=== PATIENT | female | born 1995 | race African-American/Black ===

== ENCOUNTER 2016-07-03 11:18 | Inpatient (IN) | payer MEDICAID ==
[2016-07-03] MEDS ORDERED: PENICILLIN G POTASSIUM 5,000,000 UNIT in DEXTROSE 5%-WATER 100 ML IV ONE (11:46)
[2016-07-03] MEDS ORDERED: RINGERS SOLUTION,LACTATED 1,000 ML IV PRN (11:46)
[2016-07-03] MEDS ORDERED: RINGERS SOLUTION,LACTATED 1,000 ML IV ONE (11:46)
[2016-07-03 12:00] LABS: ABSOLUTE BASOPHILS # (AUTO) 0.1 10^3/uL (0.0-0.2); ABSOLUTE LYMPHOCYTES (AUTO) 1.1 10^3/uL (0.5-4.7); ABSOLUTE MONOCYTES (AUTO) 0.5 10^3/uL (0.1-1.4); ABSOLUTE NEUT (AUTO) 5.9 10^3/uL (1.7-8.2); BASOPHILS % (AUTO) 0.7 % (0-2); EOSINOPHILS % (AUTO) 0.3 % (0-6); HEMATOCRIT 33.5 % (36.0-47.0); HEMOGLOBIN 10.7 g/dL (12.0-15.5); HGB HCT DIFFERENCE -1.4; LYMPHOCYTES % (AUTO) 14.3 % (13-45); MEAN CORPUSCULAR HEMOGLOBIN 27.3 pg (27.0-33.4); MEAN CORPUSCULAR VOLUME 85 fl (80-97); MONOCYTES % (AUTO) 6.3 % (3-13); RED BLOOD COUNT 3.92 10^6/uL (3.72-5.28); RED CELL DISTRIBUTION WIDTH 12.8 % (11.5-14.0); SEGMENTED NEUTROPHILS % (AUTO) 78.4 % (42-78); WHITE BLOOD COUNT 7.6 10^3/uL (4.0-10.5)
--- NOTE | 2016-07-03 12:00 | L&D Flow Sheet ---
LD Flowsheet Datetime Report Generated by CPN: 07/03/2016 12:00 Datetime: 07/03/2016 11:56 Vaginal Exam Dilatation (cm): 9.0 (Sidra Vitrano, RN) Effacement (%): 100 (Sidra Vitrano, RN) Station: 1 (Sidra Vitrano, RN) Exam by: R. Vitrano, RN (Sidra Vitrano, RN) Datetime: 07/03/2016 11:52 Pain Coping: Breathing Through Contractions (Sidra Vitrano, RN) Pain Assessment Comments: Counter pressure low back (Sidra Vitrano, RN) Comfort Measures: Breathing/Relaxation; Coaching (Sidra Vitrano, RN) LaborFlag: Antepartum (QS system process) Datetime: 07/03/2016 11:50 Communication Communication Comments: C. Finley CNM notified of SVE, requested to bedside (Deb Javad, RN) Datetime: 07/03/2016 11:48 Vaginal Exam Dilatation (cm): 8.5 (Sidra Vitrano, RN) Effacement (%): 100 (Sidra Vitrano, RN) Station: 0 (Sidra Vitrano, RN) Exam by: R. Vitrano, RN (Sidra Vitrano, RN) Datetime: 07/03/2016 11:47 Patient Care Comments: Labs drawn (Sidra Vitrano, RN) Datetime: 07/03/2016 11:46 Patient Care Comments: Warm pack given (Sidra Virginiaano, RN) Datetime: 07/03/2016 11:44 Patient Care IV/Blood Work: Labs Drawn (Sidra Walsh, RN) Patient Care Comments: admission labs drawn per standing orders (Sidra Walsh, RN) Datetime: 07/03/2016 11:39 Medications Medication Comments: PCN 5 milion units IVPB (Sidra Vitrano, RN) Datetime: 07/03/2016 11:38 Patient Care IV/Blood Work: IV Started; IV Bolus Started; IV Infusing per Order (Sidra Vitrano, RN) Patient Care Comments: 18 G L forearm LR bolusing (Sidra Vitrano, RN) Datetime: 07/03/2016 11:35 Assessment A Monitor Interventions for FHR: Ultrasound Adjusted (Sidra Vitrano, RN) Datetime: 07/03/2016 11:34 Communication Communication Comments: C. Finley, CNM called for SVE, orders for STAT bedside US, admit for labor (Sidra Vitrano, RN) Datetime: 07/03/2016 11:33 Vaginal Exam Dilatation (cm): 6.0 (Sidra Vitrano, RN) Effacement (%): 90 (Sidra Vitrano, RN) Station: 0 (Sidra Vitrano, RN) Exam by: RRosa Vitrano, RN (Sidra Vitrano, RN) Datetime: 07/03/2016 11:32 Communication Communication Comments: C. Finley, CNM called, notified of EGA per pt dates, no PNC, complaints contractions, nursing assessment. Orders for SVE. (Sidra Vitrano, RN) Datetime: 07/03/2016 11:30 Uterine Activity Frequency (min): Unsure (Sidra Vitrano, RN) Pain Pain Scale: 5 (Sidra Vitrano, RN) Pain Presence: Intermittent (Sidra Vitrano, RN) Pain Type: Contraction (Sidra Vitrano, RN) Pain Location: Abdomen; Back (Sidra Vitrano, RN) Pain Relief Measures: Comfort Measures (Sidra Vitrano, RN) Pain Coping: Breathing Through Contractions (Sidra Vitrano, RN) Membrane Status: Pt unsure (Sidra Vitrano, RN) Vaginal Bleeding: None (Sidra Vitrano, RN) Maternal Assessment Level of Consciousness: Fully Conscious (Sidra Vitrano, RN) DTR's/Clonus: DTRs 2+; No Clonus (Sidra Vitrano, RN) Headache: Denies (Sidra Walsh RN) Breath Sounds, Left: Clear and Equal (Sidra Walsh RN) Breath Sounds, Right: Clear and Equal (Sidra Walsh, RN) Nausea/Vomiting: Denies (Sidra Walsh, RN) RUQ Epigastric Pain: Denies (Sidra Walsh RN) LaborFlag: Antepartum (QS system process) Datetime: 07/03/2016 11:29 Teaching Instructional Method: Verbal; Patient Instructed; Family/Support Person Instructed; Verbalized Understanding (Sidra Walsh RN) Plan of Care: Plan of Care Discussed (Sidra Walsh RN) Unit Routine: [place] to Room; Call Jones; Bed; Unit Personnel; Monitoring; Safety/Fall Risk Prevention; Bathroom Privileges (Sidra Walsh RN) Datetime: 07/03/2016 11:28 Patient Care Comments: Unable to collect urine d/t pt declines d/t pain (Sidra Walsh RN)
[2016-07-03] MEDS ORDERED: PROMETHAZINE HCL 25 MG SUPP.RECT PR PRN (12:58)
[2016-07-03] MEDS ORDERED: BENZOCAINE/MENTHOL AEROSOL SPRAY 56 ML TOP PRN (12:58)
[2016-07-03] MEDS ORDERED: PSEUDOEPHEDRINE HCL 30 MG TABLET PO PRN (12:58)
[2016-07-03] MEDS ORDERED: ACETAMINOPHEN WITH CODEINE #3 TABLET PO PRN (12:58)
[2016-07-03] MEDS ORDERED: DIPH/PERTUSS(ACELL)/TETANUS VAC/PF 0.5 ML SYR (>=10YO) IM PRN (12:58)
[2016-07-03] MEDS ORDERED: ACETAMINOPHEN 650 MG SUPP.RECT PR PRN (12:58)
[2016-07-03] MEDS ORDERED: DIPHENHYDRAMINE HCL 25 MG CAPSULE PO PRN (12:58)
[2016-07-03] MEDS ORDERED: PROMETHAZINE HCL 25 MG TABLET PO PRN (12:58)
[2016-07-03] MEDS ORDERED: DIBUCAINE 1% OINTMENT 28 GM TP PRN (12:58)
[2016-07-03] MEDS ORDERED: NA PHOS,M-B/NA PHOS,DI-BA (ADULT) 133 ML ENEMA PR PRN (12:58)
[2016-07-03] MEDS ORDERED: OXYTOCIN/NORMAL SALINE 1,000 ML IV PRN (12:58)
[2016-07-03] MEDS ORDERED: PROMETHAZINE HCL INJ 25 MG/1 ML VIAL IV PRN (12:58)
[2016-07-03] MEDS ORDERED: MEASLES,MUMPS&RUBELLA VACC/PF 0.5 ML VIAL SUBCUT PRN (12:58)
[2016-07-03] MEDS ORDERED: ZOLPIDEM TARTRATE 5 MG TABLET PO PRN (12:58)
[2016-07-03] MEDS ORDERED: GLYCERIN/WITCH HAZEL LEAF 1 EACH MED..PAD TP PRN (12:58)
[2016-07-03] MEDS ORDERED: MAGNESIUM HYDROXIDE SUSP 30 ML UDCUP PO PRN (12:58)
[2016-07-03] MEDS ORDERED: OXYTOCIN/NORMAL SALINE 20 UNIT/1,000 ML RTUINJ ONE (12:59)
[2016-07-03 13:14] LABS: APPEARANCE,URINE SLIGHTLY-CLOUDY; BILIRUBIN,URINE NEGATIVE (NEGATIVE); GLUCOSE, URINE NEGATIVE (NEGATIVE); KETONES,URINE TRACE mg/dL (NEGATIVE); LEUKOCYTE ESTERASE,URINE TRACE (NEGATIVE); NITRITE,URINE NEGATIVE (NEGATIVE); PROTEIN,URINE 30 mg/dL (NEGATIVE); URINE SPECIFIC GRAVITY 1.032
[2016-07-03] MEDS ORDERED: IBUPROFEN 800 MG TABLET ONE (13:35)
--- NOTE | 2016-07-03 13:44 | Delivery Summary ---
Del Sum A-C Datetime Report Generated by CPN: 07/03/2016 13:44 ADMISSION DATA Chief Complaint: Uterine Contractions Indication for Induction: Not Applicable Admission Impression: Active Labor Admission Impression Comments: no care, presumptive Admit Provider Comments: 20yo presumptive 35w5d per stated due date. Reports care was received here in April (was seen in April as a labor check for cramping, no u/s on record or ever done, denies other care). Denies any complications with prior , has ten month old son at home. Denies Hx of HSV, smoking or drug use. Denies bleeding, denies LOF -no fluid on attempted AROM (palpable BOW). Reports hx of chlamydia last year. Pt. presented at 6cm dilated and quickly progressed to 9cm and delivered prior to ordered u/s or return of labs. Baby appears post term at . DELIVERY PERSONNEL Nurse Fern Cutter Certified:: Anastasia Finley CNM Labor and Delivery Nurse:: Sidra Walsh RNforeign exchange student coordinator Nurse:: JONATHAN Gutiérrez Nursery Nurse:: Hattie Lopez RN Student Observers:: Jono Yo EMT student Oxygraph Operator/SUGAR CANE PLANTER MACHINE OPERATOR: Yudi Devine, ARTS THERAPIST Oxygraph Operator/SUGAR CANE PLANTER MACHINE OPERATOR: Kelly Sheth CNA II MATERNAL INFORMATION Delivery Anesthesia: None Medications After Delivery: Pitocin Bolus-Please Comment; Pitocin Drip 20 Units/1000ml NSS Meds After Delivery Comment: Pitocin 20 units in 1000 ml nss open for bolus after Estimated Blood Loss (ml): 75 Maternal Complications: Other Other Maternal Complications: No care, unsure dates Provider Comments: Pt. was 6cm upon arrival, labs and u/s ordered as well as treatment for unknown GBS. Antibiotics given x 1 dose. Pt. quickly progressed to 9cm with urge to push. Attempted AROM which yielded no fluid but small amount of discharge on arrival with green tingue suggestive of meconium. Pt. progressed to c/c/+2 with urge to push and went on to deliver a viable baby girl. Head delivered and Mc Nolasco maneuver applied, shoulders easily delivered as well as rest of body. Short cord noted. Baby with vigorous resp. effort and cry at perineum. Baby placed on maternal abdomen and cord allowed to stop pulsating then clamped x 2 and cut by FOB. Cord blood collected, 3vc noted. Placenta delivered spontaneously intact. Vaginal and perineal inspection revealed left labial tear that was repaired in the above manner. Mother and baby skin to skin and bonding. Baby with peeling feet bilaterally. Meconium stained fluid and terminal meconium at delivery. Fiona SMITH from nursery also present at delivery for presumptive baby. LABOR SUMMARY EDC: 08/02/2016 00:00 No. Babies in Womb: 1 Attempted: No Labor Anesthesia: None LABOR INFORMATION Reason for Induction: Not Applicable Onset of Labor: 07/03/2016 06:00 Complete Dilatation: 07/03/2016 12:10 Oxytocin: N/A Group B Beta Strep: unknown Antibiotics # of Doses: 1 Antibiotics Time of Last Dose: 1139 Name of Antibiotic Given: Penicillin Steroids Given: None Reason Steroids Not Administered: Not Applicable MEMBRANES Membranes Rupture Method: Artificial Rupture of Membranes: 07/03/2016 12:10 Length of Rupture (hr): 0.20 Amniotic Fluid Color: Clear Amniotic Fluid Amount: None Amniotic Fluid Odor: Normal STAGES OF LABOR Stage 1 hr: 6 Stage 1 min: 10 Stage 2 hr: 0 Stage 2 min: 12 Stage 3 hr: 0 Stage 3 min: 12 Total Time in Labor hr: 6 Total Time in Labor min: 34 VAGINAL DELIVERY Episiotomy: None Laceration Extension: N/A Other Laceration: Labial Laceration Repair: Yes Laceration Repair Note: superficial left labial tear that was not hemostatic and therefore repaired with 2-0 chromic in the usual fashion. Hemostasis achieved. Sponge Count Correct: N/A Sharps Count Correct: N/A CSECTION DELIVERY Primary Indication: N/A Secondary Indication: N/A CSection Incidence: N/A Labor: N/A Elective: N/A CSection Incision: N/A BABY A INFORMATION Delivery Date/Time: 07/03/2016 12:22 Method of Delivery: Vaginal Born in Route : No : N/A Forceps: N/A Vacuum Extraction: N/A Shoulder Dystocia : No PRESENTATION/POSITION BABY A Presentation: Cephalic Cephalic Presentation: Vertex Vertex Position: Left Occipital Anterior Breech Presentation: N/A PLACENTA INFORMATION BABY A Placenta Delivery Time : 07/03/2016 12:34 Placenta Method of Delivery: Spontaneous Placenta Status: Delivered SCORES BABY A Heart Rate 1 min: >100 bpm Resp Effort 1 min: Good Cry Reflex Irritability 1 min: Cough or Sneeze or Pulls Away Muscle Tone 1 min: Active Motion Color 1 min: Blue/Pale Resuscitation Effort 1 min: Tactile Stimulation SCORE 1 MIN: 8 Heart Rate 5 min: >100 bpm Resp Effort 5 min: Good Cry Reflex Irritability 5 min: Cough or Sneeze or Pulls Away Muscle Tone 5 min: Active Motion Color 5 min: Body [place], Extremities Blue Resuscitation Effort 5 min: N/A SCORE 5 MIN: 9 Resuscitation Effort 10 min: N/A INFANT INFORMATION BABY A Gestational Age at Delivery: 35.5 Gestational Status: Late - 34- 36.6 Weeks Outcome : Liveborn Condition : Stable Infant Sex: Female IDENTIFICATION BABY A Infant Verification Date/Time: 07/03/2016 12:33 ID Band Number: [id number] Mother's Name Verified: Yes Infant RN Verifying : Xochilt Slidell RNC Additional Verifying Personnel: Kelly Sheth SUGAR CANE PLANTER MACHINE OPERATOR WEIGHT/LENGTH BABY A Birthweight (gm): 2870 Infant Weight (lb): 6 Weight (oz): 5 Length (in): 19.00 Infant Length (cm): 48.26 CORD INFORMATION BABY A No. Cord Vessels: 3 Nuchal Cord : N/A Cord Blood Taken: Yes-For Storage (Mom's Blood type +) Infant Suction: Mouth; Nose ASSESSMENT BABY A Infant Complications: Meconium Infant Complications- Other: Terminal meconium Physical Findings at Delivery: Within Normal Limits Respirations: Appears Normal Skin to Skin: Yes [employer] Truck Driver/ALS Called : No Care By: E Glendora RNC Transferred To: Remains with Mother BABY B INFORMATION : N/A SIGNATURES Assignment: Lilia Boyd MD Signature: with User ID: Daniel : with User ID: Daniel
[2016-07-03 13:54] LABS: URINE BARBITURATES SCREEN NEGATIVE; URINE METHADONE SCREEN NEGATIVE; URINE OPIATES LOW NEGATIVE; URINE PHENCYCLIDINE SCREEN NEGATIVE
--- NOTE | 2016-07-03 14:00 | L&D Flow Sheet ---
LD Flowsheet Datetime Report Generated by CPN: 07/03/2016 14:00 Datetime: 07/03/2016 13:54 NBP Sys/Alayna/Mean (mmHg): 118 (QS system process) : 59 (QS system process) : 80 (QS system process) Pulse: 85 (QS system process) Respirations: 16 (Sidra Vitrano, RN) Datetime: 07/03/2016 13:39 NBP Sys/[place]/Mean (mmHg): 109 (QS system process) : 61 (QS system process) : 78 (QS system process) Pulse: 65 (QS system process) Respirations: 16 (Sidra Vitrano, RN) Datetime: 07/03/2016 13:30 Stage of : Recovery (Sidra Vitrano, RN) Pain Scale: 2 (Sidra Vitrano, RN) Pain Presence: Intermittent (Sidra Vitrano, RN) Pain Type: Cramping (Sidra Vitrano, RN) Datetime: 07/03/2016 13:18 NBP Sys/[place]/Mean (mmHg): 144 (QS system process) : 76 (QS system process) : 103 (QS system process) Pulse: 70 (QS system process) Respirations: 16 (Sidra Vitrano, RN) Datetime: 07/03/2016 13:15 Stage of : Recovery (Sidra Vitrano, RN) Pain Scale: 0 (Sidra Vitrano, RN) Pain Presence: None/Denies (Sidra Vitrano, RN) Pain Type: N/A (Sidra Vitrano, RN) Datetime: 07/03/2016 13:00 Stage of : Recovery (Sidra Vitrano, RN) Pain Scale: 0 (Sidra Vitrano, RN) Pain Presence: None/Denies (Sidra Vitrano, RN) Pain Type: N/A (Sidra Vitrano, RN) Datetime: 07/03/2016 12:59 Pulse: 75 (QS system process) SpO2 (%): 100 (QS system process) Datetime: 07/03/2016 12:54 NBP Sys/[place]/Mean (mmHg): 121 (QS system process) : 58 (QS system process) : 80 (QS system process) Pulse: 81 (QS system process) Respirations: 15 (Sidra Vitrano, RN) Datetime: 07/03/2016 12:45 Stage of : Recovery (Sidra Vitrano, RN) Pain Scale: 0 (Sidra Vitrano, RN) Pain Presence: None/Denies (Sidra Vitrano, RN) Pain Type: N/A (Sidra Vitrano, RN) Datetime: 07/03/2016 12:37 NBP Sys/[place]/Mean (mmHg): 128 (QS system process) : 60 (QS system process) : 86 (QS system process) Pulse: 88 (QS system process) Respirations: 16 (Sidra Vitrano, RN) Temperature (F): 98.0 (Sidra Vitrano, RN) Temperature (C): 36.7 (QS system process) Temperature Route: Oral (Sidra Vitrano, RN) Datetime: 07/03/2016 12:34 Stage of : Recovery (Sidra Vitrano, RN) Pain Scale: 0 (Sidra Vitrano, RN) Pain Presence: None/Denies (Sidra Vitrano, RN) Pain Type: N/A (Sidra Vitrano, RN) Datetime: 07/03/2016 12:23 Stage of : Recovery (Deb Javad, RN) Datetime: 07/03/2016 12:22 Monitor Mode: External; Palpation (Sidra Vitrano, RN) Frequency (min): 1-2 (Sidra Vitrano, RN) Quality: Moderate to Strong (Sidra Vitrano, RN) Duration (sec): 50-120 (Sidra Vitrano, RN) Duration Criteria: Less than Two 120 Second Contractions (Sidra Vitrano, RN) Pattern: Normal: <= 5 Contractions in 10 Minutes (Sidra Vitrano, RN) Resting Tone (Palpate): Relaxed (Sidra Vitrano, RN) Monitor Mode: External US (Sidra Vitrano, RN) FHR Baseline Rate : 120 (Sidra Vitrano, RN) Variability: Moderate 6-25 bpm (Sidra Vitrano, RN) Accelerations: 15X15 (Sidra Vitrano, RN) Decelerations: Variable; Prolonged (Sidra Vitrano, RN) Stage 2 Comments: viable baby girl, see delivery summary (Sidra Vitrano, RN) Datetime: 07/03/2016 12:20 Pulse: 160 (QS system process) SpO2 (%): 91 (QS system process) Patient Care Comments: pushing with contractions, RN and provider Finley to remain at bedside throughout (Sidra Vitrano, RN) Instructional Method: Demo; Verbal; Patient Instructed; Verbalized Understanding (Sidra Walsh RN) Labor/Induction: Pushing Methods (Sidra Walsh RN) Pushing: Coached on Pushing (Sidra Walsh RN) Pushing Progress: Ineffective Pushing (Sidra Walsh RN) LaborFlag: Antepartum (QS system process) Datetime: 07/03/2016 12:16 Monitor Interventions for FHR: Ultrasound Adjusted (Sidra Walsh RN) Comments: RN at bedside adjusting, pulse oximeter applied (Sidra Walsh, RN) Datetime: 07/03/2016 12:15 Actions for Decelerations: Side to Side; Oxygen Applied; Provider Reviewed Strip (Sidra Walsh RN) Comments: provider remains at bedside (Sidra Walsh RN) Oxygen Amount : 10 (Sidra Walsh, RN) Datetime: 07/03/2016 12:14 Pushing: Involuntary Pushing (Sidra LUIS Walsh) Datetime: 07/03/2016 12:13 Comments: E John RNC nursery staff at [facility] for delivery (Sidra Walsh RN) I/O Interventions: Straight Cath (ml) @ 100 ml dark yellow urine (Sidra Walsh RN) Datetime: 07/03/2016 12:10 Dilatation (cm): 10.0 (Sidra Walsh RN) Effacement (%): 100 (Sidra Walsh RN) Station: 2 (Sidra Walsh RN) Exam by: Elmira Finley (Sidra Walsh, RN) Membrane Status: Ruptured (Sidra Walsh RN) Membranes Rupture Method: Artificial (Sidra Walsh RN) Amniotic Fluid Amount: None (Sidra Walsh RN) Membrane Comments: Elmira Finley CNM at bedside (Sidra Walsh, RN) IV/Blood Work: IV Bolus Given ml @ 500; IV Infusing per Order (Sidra Walsh, RN) Patient Care Comments: iv rate decreased to 125 ml/hr (Sidraelaine Walsh, RN) Datetime: 07/03/2016 12:08 Exam by: Meagan Finley CNM (Sidra Walsh, LUIS) Vaginal Exam Comments: No change (Sidra Walsh RN) Datetime: 07/03/2016 12:05 Communication Comments: Meagan Finley CNM at bedside, notified of SVE and urge to push (Sidra Walsh, RN) Datetime: 07/03/2016 12:04 Dilatation (cm): 9.5 (Sidar Vitrano, RN) Effacement (%): 100 (Sidra Vitrano, RN) Station: 1 (Sidra Vitrano, RN) Exam by: Moralse Walsh RN (Sidra Vitrano, RN) Datetime: 07/03/2016 12:02 Communication Comments: C. Finley, CNM at bedside to greet pt, review POC, answer pt questions (Sidra Vitrano, RN) Datetime: 07/03/2016 12:00 Monitor Mode: External; Palpation (Xochilt Camp, RN) Frequency (min): 1-2 (Xochilt Camp, RNC) Quality: Moderate to Strong (Xochilt Camp, RNC) Duration (sec): 40-60 (Xochilt Camp, RNC) Duration Criteria: Less than Two 120 Second Contractions (Xochilt Camp, RNC) Pattern: Normal: <= 5 Contractions in 10 Minutes (Xochilt Camp, RNC) Resting Tone (Palpate): Relaxed (Xochilt Camp, RNC) Monitor Mode: External US; Auscultation (Xochilt Camp, RNC) FHR Baseline Rate : 120 (Xochilt Camp, RNC) FHR Baseline Changes: No Baseline Change (Xochilt Camp, RNC) Variability: Moderate 6-25 bpm (Xochilt Camp, RNC) Accelerations: 15X15 (Xochilt Camp, RNC) Decelerations: None (Xochilt Camp, RNC)
--- NOTE | 2016-07-03 14:44 | Admission Physical ---
Datetime Report Generated by CPN: 07/03/2016 14:44 CURRENT ADMISSION Chief Complaint: Uterine Contractions Indication for Induction: Not Applicable Admit Impression- Other: no care, presumptive Admit Plan: Admit to Unit; Initiate Labor Protocol ALLERGIES Medication Allergies: No Medication Allergies: No Known Allergies (07/03/2016) Latex: No Latex Allergies Food Allergies: N/A Environmental Allergies: N/A OBSTETRICAL HISTORY EDC: 08/02/2016 00:00 : 2 Para: 1 Term: 1 : 0 SAB: 0 IAB: 0 Ectopic: 0 Livin Cesareans: 0 VBACs: 0 Multiple Births: 0 Gestational Diabetes: No Rh Sensitization: No Incompetent Cervix: No ARMBO: No Infertility: No ART Treatment: No Uterine Anomaly: No IUGR: No Hx Previous C/S: No Macrosomia: No Hx Loss/Stillborn: No PIH: No Hx : No Placenta Previa/Abruption: No Depression/PP Depression: No PTL/PROM: No Post Hemorrhage: No Current Procedures: NST Obstetrical History Comments: G1: 08/2015 40 wk male G2: Current Close space No PNC SEE RECORDS Alcohol: No Marijuana : No Cocaine: No Other Illicit Drugs: No Cigarettes: Former Smoker. [id number] MEDICAL HISTORY Diabetes: No Blood Transfusion: No Pulmonary Disease (Asthma, TB): No Breast Disease: No Hypertension: No Mold Burner Surgery: No Heart Disease: No Hosp/Surgery: Yes Autoimmune Disorder: No Anesthetic Complications: No Kidney Disease: No Abnormal Pap Smear: No Neuro/Epilepsy: No Psychiatric Disorders: No Other Medical Diseases: No Hepatitis/Liver Disease: No Significant Family History: No Varicosities/Phlebitis: No Trauma/Violence : No Thyroid Dysfunction: No Medical History Comments: Hospitalization childbirth INFECTIOUS HISTORY Gonorrhea: No Genital Herpes: No Chlamydia: Yes Tuberculosis: No Syphilis: No Hepatitis: No HIV/AIDS Exposure: No Rash or Viral Illness: No HPV: No Infectious History Comments: chlamydia 2016 with tx PHYSICAL EXAM General: Normal HEENT: Normal Neurologic: Normal Thyroid: Normal Heart: Normal Lungs: Normal Breast: Normal Back: Normal Abdomen: Normal Genitourinary Exam: Normal Extremities: Normal DTRs: Normal Pelvic Type: Adequate Vital Signs: Reviewed FETUS A EGA: 35.5 Monitoring: External US Decelerations: None FHR Category: Category I Presentation: Vertex Admit Comment: 20yo presumptive 35w5d per stated due date. Reports care was received here in April (was seen in April as a labor check for cramping, no u/s on record or ever done, denies other care). Denies any complications with prior , has ten month old son at home. Denies Hx of HSV, smoking or drug use. Denies bleeding, denies LOF -no fluid on attempted AROM (palpable BOW). Reports hx of chlamydia last year. Pt. presented at 6cm dilated and quickly progressed to 9cm and delivered prior to ordered u/s or return of labs. Baby appears post term at . PLANS FOR LABOR AND DELIVERY Labor and Delivery: None Pain Management: Medications; Epidural Feeding Preference: Formula Benefit of Breast Feed Discussed: Yes Circumcision: Yes INFORMED CONSENT Assignment: Lilia Boyd MD Signature: with User ID: Daniel : with User ID: Daniel
[2016-07-03] MEDS: IBUPROFEN 800 MG TABLET PO SCH ×2 (15:05→21:05)
[2016-07-03] MEDS ORDERED: PENICILLIN G POTASSIUM 2,500,000 UNIT in DEXTROSE 5%-WATER 50 ML IV SCH (15:46)
[2016-07-03] MEDS ORDERED: PENICILLIN G POTASSIUM 2,500,000 UNIT in DEXTROSE 5%-WATER 100 ML IV ONE (15:46)
[2016-07-03] MEDS ORDERED: INFLUENZA ADLT QUAD (36MOS+) 2016-17 VAC 0.5 ML SYR IM PRN (16:42)
[2016-07-03 17:49] LABS: CHLAM PCR NOT DETECTED (NOT DETECT)
[2016-07-03] MEDS: DOCUSATE SODIUM 100 MG CAPSULE PO SCH (17:50)
[2016-07-03] MEDS: FERROUS SULFATE 325 MG TABLET PO SCH (17:50)
--- NOTE | 2016-07-03 19:00 | L&D Flow Sheet ---
LD Flowsheet Datetime Report Generated by CPN: 07/03/2016 19:00 Datetime: 07/03/2016 14:30 Vital Signs Stage of : Recovery (Sidra Vitrano, RN) Pain Pain Scale: 1 (Sidra Vitrano, RN) Pain Presence: Intermittent (Sidra Vitrano, RN) Pain Type: Cramping (Sidra Vitrano, RN) Datetime: 07/03/2016 14:24 NBP Sys/Alayna/Mean (mmHg): 97 (QS system process) : 53 (QS system process) : 70 (QS system process) Pulse: 67 (QS system process) Respirations: 16 (Sidra Vitrano, RN) Datetime: 07/03/2016 14:09 NBP Sys/Alayna/Mean (mmHg): 108 (QS system process) : 57 (QS system process) : 75 (QS system process) Pulse: 64 (QS system process) Respirations: 16 (Sidra Vitrano, RN) Datetime: 07/03/2016 14:00 Vital Signs Stage of : Recovery (Sidra Vitrano, RN) Pain Pain Scale: 1 (Sidra Vitrano, RN) Pain Presence: Intermittent (Sidra Vitrano, RN) Pain Type: Cramping (Sidra Vitrano, RN) Datetime: 07/03/2016 13:54 NBP Sys/Al[place]na/Mean (mmHg): 118 (QS system process) : 59 (QS system process) : 80 (QS system process) Pulse: 85 (QS system process) Respirations: 16 (Sidra Vitrano, RN) Datetime: 07/03/2016 13:39 NBP Sys/Al[place]na/Mean (mmHg): 109 (QS system process) : 61 (QS system process) : 78 (QS system process) Pulse: 65 (QS system process) Respirations: 16 (Sidra Vitrano, RN) Datetime: 07/03/2016 13:30 Vital Signs Stage of : Recovery (Sidra Vitrano, RN) Pain Pain Scale: 2 (Sidra Vitrano, RN) Pain Presence: Intermittent (Sidra Vitrano, RN) Pain Type: Cramping (Sidra Vitrano, RN) Datetime: 07/03/2016 13:18 NBP Sys/Al[place]na/Mean (mmHg): 144 (QS system process) : 76 (QS system process) : 103 (QS system process) Pulse: 70 (QS system process) Respirations: 16 (Sidra Vitrano, RN) Datetime: 07/03/2016 13:15 Vital Signs Stage of : Recovery (Sidra Vitrano, RN) Pain Pain Scale: 0 (Sidra Vitrano, RN) Pain Presence: None/Denies (Sidra Vitrano, RN) Pain Type: N/A (Sidra Vitrano, RN) Datetime: 07/03/2016 13:00 Vital Signs Stage of : Recovery (Sidra Vitrano, RN) Pain Pain Scale: 0 (Sidra Vitrano, RN) Pain Presence: None/Denies (Sidra Vitrano, RN) Pain Type: N/A (Sidra Vitrano, RN) Datetime: 07/03/2016 12:59 Pulse: 75 (QS system process) SpO2 (%): 100 (QS system process) Datetime: 07/03/2016 12:54 NBP Sys/Alayna/Mean (mmHg): 121 (QS system process) : 58 (QS system process) : 80 (QS system process) Pulse: 81 (QS system process) Respirations: 15 (Sidra Vitrano, RN) Datetime: 07/03/2016 12:45 Vital Signs Stage of : Recovery (Sidra Vitrano, RN) Pain Pain Scale: 0 (Sidra Vitrano, RN) Pain Presence: None/Denies (Sidra Vitrano, RN) Pain Type: N/A (Sidra Vitrano, RN) Datetime: 07/03/2016 12:37 NBP Sys/Alayna/Mean (mmHg): 128 (QS system process) : 60 (QS system process) : 86 (QS system process) Pulse: 88 (QS system process) Respirations: 16 (Sidra Vitrano, RN) Temperature (F): 98.0 (Sidra Vitrano, RN) Temperature (C): 36.7 (QS system process) Temperature Route: Oral (Sidra Vitrano, RN) Datetime: 07/03/2016 12:34 Vital Signs Stage of : Recovery (Sidra Vitrano, RN) Pain Pain Scale: 0 (Sidra Vitrano, RN) Pain Presence: None/Denies (Sidra Vitrano, RN) Pain Type: N/A (Sidra Vitrano, RN) Datetime: 07/03/2016 12:23 Vital Signs Stage of : Recovery (Deb Javad, RN) Datetime: 07/03/2016 12:22 Uterine Activity Monitor Mode: External; Palpation (Sidra Vitrano, RN) Frequency (min): 1-2 (Sidra Vitrano, RN) Quality: Moderate to Strong (Sidra Vitrano, RN) Duration (sec): 50-120 (Sidra Vitrano, RN) Duration Criteria: Less than Two 120 Second Contractions (Sidra Vitrano, RN) Pattern: Normal: <= 5 Contractions in 10 Minutes (Sidra Vitrano, RN) Resting Tone (Palpate): Relaxed (Sidra Vitrano, RN) Assessment A Monitor Mode: External US (Sidra Vitrano, RN) FHR Baseline Rate : 120 (Sidra Vitrano, RN) Variability: Moderate 6-25 bpm (Sidra Vitrano, RN) Accelerations: 15X15 (Sidra Vitrano, RN) Decelerations: Variable; Prolonged (Sidra Vitrano, RN) Stage 2 Comments: viable baby girl, see delivery summary (Sidra Vitrano, RN) Datetime: 07/03/2016 12:20 Pulse: 160 (QS system process) SpO2 (%): 91 (QS system process) Patient Care Comments: pushing with contractions, RN and provider Finley to remain at bedside throughout (Sidra Vitrano, RN) Teaching Instructional Method: Demo; Verbal; Patient Instructed; Verbalized Understanding (Sidra Vitrano, RN) Labor/Induction: Pushing Methods (Sidra Vitrano, RN) Stage 2 Pushing: Coached on Pushing (Sidra Vitrano, RN) Pushing Progress: Ineffective Pushing (Sidra Vitrano, RN) LaborFlag: Antepartum (QS system process) Datetime: 07/03/2016 12:16 Monitor Interventions for FHR: Ultrasound Adjusted (Sidra Vitrano, RN) Comments: RN at bedside adjusting, pulse oximeter applied (Sidra Vitrano, RN) Datetime: 07/03/2016 12:15 Actions for Decelerations: Side to Side; Oxygen Applied; Provider Reviewed Strip (Sidra Vitrano, RN) Comments: provider remains at bedside (Sidra Vitrano, RN) Oxygen Amount : 10 (Sidra Vitrano, RN) Datetime: 07/03/2016 12:14 Stage 2 Pushing: Involuntary Pushing (Sidra Vitrano, RN) Datetime: 07/03/2016 12:13 Comments: E [place] RNC nursery staff at bedsdie for delivery (Sidra Vitrano, RN) I/O Interventions: Straight Cath (ml) @ 100 ml dark yellow urine (Sidra Vitrano, RN) Datetime: 07/03/2016 12:10 Vaginal Exam Dilatation (cm): 10.0 (Sidra Vitrano, RN) Effacement (%): 100 (Sidra Vitrano, RN) Station: 2 (Sidra Vitrano, RN) Exam by: Elmira Finley (Sidra Vitrano, RN) Membrane Status: Ruptured (Sidra Vitrano, RN) Membranes Rupture Method: Artificial (Sidra Vitrano, RN) Amniotic Fluid Amount: None (Sidra Vitrano, RN) Membrane Comments: Elmira Finley CNM at bedside (Sidra Vitrano, RN) Patient Care IV/Blood Work: IV Bolus Given ml @ 500; IV Infusing per Order (Sidra Virginiaano, RN) Patient Care Comments: iv rate decreased to 125 ml/hr (Sidra Vitrano, RN) Datetime: 07/03/2016 12:08 Exam by: Meagan Finley CNM (Sidra Vitrano, RN) Vaginal Exam Comments: No change (Sidra Vitrano, RN) Datetime: 07/03/2016 12:05 Communication Communication Comments: C. Finley, CNM at bedside, notified of SVE and urge to push (Sidra Vitrano, RN) Datetime: 07/03/2016 12:04 Vaginal Exam Dilatation (cm): 9.5 (Sidra Vitrano, RN) Effacement (%): 100 (Sidra Vitrano, RN) Station: 1 (Sidra Vitrano, RN) Exam by: Morales Walsh RN (Sidra Vitrano, RN) Datetime: 07/03/2016 12:02 Communication Communication Comments: C. Finley, CNM at bedside to greet pt, review POC, answer pt questions (Sidra Vitrano, RN) Datetime: 07/03/2016 12:00 Uterine Activity Monitor Mode: External; Palpation (Xochilt Camp, RNC) Frequency (min): 1-2 (X[place]ilt Camp, RNC) Quality: Moderate to Strong (Xochilt Camp, RNC) Duration (sec): 40-60 (Xochilt Camp, RNC) Duration Criteria: Less than Two 120 Second Contractions (Xochilt Camp, RNC) Pattern: Normal: <= 5 Contractions in 10 Minutes (Xochilt Camp, RNC) Resting Tone (Palpate): Relaxed (Xochilt Camp, RNC) Assessment A Monitor Mode: External US; Auscultation (Xochilt Camp, RNC) FHR Baseline Rate : 120 (Xochilt Camp, RNC) FHR Baseline Changes: No Baseline Change (Xochilt Camp, RNC) Variability: Moderate 6-25 bpm (Xochilt Camp, RNC) Accelerations: 15X15 (Xochilt Camp, RNC) Decelerations: None (Xochilt Camp, RNC) Datetime: 07/03/2016 11:58 Patient Care Comments: Consents reviewed and signed (Sidra Vitrano, RN) Datetime: 07/03/2016 11:56 Vaginal Exam Dilatation (cm): 9.0 (Sidra LUIS Walsh) Effacement (%): 100 (Sidra LUIS Walsh) Station: 1 (Sidra Vitrano, RN) Exam by: RRosa Colemanano, RN (Sidra Vitrano, RN) Datetime: 07/03/2016 11:52 Pain Coping: Breathing Through Contractions (Sidra Vitrano, RN) Pain Assessment Comments: Counter pressure low back (Sidra Vitrano, RN) Comfort Measures: Breathing/Relaxation; Coaching (Sidra Vitrano, RN) LaborFlag: Antepartum (QS system process) Datetime: 07/03/2016 11:50 Communication Communication Comments: C. Finley CNM notified of SVE, requested to bedside (Deb Farnsworth, RN) Datetime: 07/03/2016 11:48 Vaginal Exam Dilatation (cm): 8.5 (Sidra Vitrano, RN) Effacement (%): 100 (Sidra Vitrano, RN) Station: 0 (Sidra Vitrano, RN) Exam by: RRosa Walsh RN (Sidra Vitrano, RN) Datetime: 07/03/2016 11:47 Patient Care Comments: Labs drawn (Sidra Vitrano, RN) Datetime: 07/03/2016 11:46 Patient Care Comments: Warm pack given (Sidra Vitrano, RN) Datetime: 07/03/2016 11:45 Uterine Activity Monitor Mode: External; Palpation (Xochilt Camp, RNC) Frequency (min): 1-2 (Xochilt Camp, RNC) Quality: Moderate to Strong (Xochilt Camp, RNC) Duration (sec): 40-50 (Xochilt Camp, RNC) Duration Criteria: Less than Two 120 Second Contractions (Xochilt Camp, RNC) Pattern: Normal: <= 5 Contractions in 10 Minutes (Xochilt Camp, RNC) Resting Tone (Palpate): Relaxed (Xochilt Camp, RNC) Assessment A Monitor Mode: External US; Auscultation (Xochilt Camp, RNC) FHR Baseline Rate : 120 (Xochilt Camp, RNC) FHR Baseline Changes: No Baseline Change (Xochilt Camp, RNC) Variability: Moderate 6-25 bpm (Xochilt Camp, RNC) Accelerations: 15X15 (Xochilt Camp, RNC) Decelerations: None (Xochilt Camp, RNC) Datetime: 07/03/2016 11:44 Patient Care IV/Blood Work: Labs Drawn (Sidra Vitrano, RN) Patient Care Comments: admission labs drawn per standing orders (Sidra Vitrano, RN) Datetime: 07/03/2016 11:39 Medications Medication Comments: PCN 5 milion units IVPB (Sidra Vitrano, RN) Datetime: 07/03/2016 11:38 Patient Care IV/Blood Work: IV Started; IV Bolus Started; IV Infusing per Order (Sidra Vitrano, RN) Patient Care Comments: 18 G L forearm LR bolusing (Sidra Vitrano, RN) Datetime: 07/03/2016 11:35 Monitor Interventions for FHR: Ultrasound Adjusted (Sidra Vitrano, RN) Datetime: 07/03/2016 11:34 Communication Communication Comments: C. Finley, CNM called for SVE, orders for STAT bedside US, admit for labor (Sidra Vitrano, RN) Datetime: 07/03/2016 11:33 Vaginal Exam Dilatation (cm): 6.0 (Sidra Vitrano, RN) Effacement (%): 90 (Sidra Vitrano, RN) Station: 0 (Sidra Vitrano, RN) Exam by: RRosa Walsh RN (Sidra Vitrano, RN) Datetime: 07/03/2016 11:32 Communication Communication Comments: C. Finley, CNM called, notified of EGA per pt dates, no PNC, complaints contractions, nursing assessment. Orders for SVE. (Sidra Vitrano, RN) Datetime: 07/03/2016 11:30 Frequency (min): Unsure (Sidra Vitrano, RN) Pain Pain Scale: 5 (Sidra Vitrano, RN) Pain Presence: Intermittent (Sidra Vitrano, RN) Pain Type: Contraction (Sidra Vitrano, RN) Pain Location: Abdomen; Back (Sidra Vitrano, RN) Pain Relief Measures: Comfort Measures (Sidra Vitrano, RN) Pain Coping: Breathing Through Contractions (Sidra Vitrano, RN) Membrane Status: Pt unsure (Sidra Vitrano, RN) Vaginal Bleeding: None (Sidra Vitrano, RN) Maternal Assessment Level of Consciousness: Fully Conscious (Sidra Vitrano, RN) DTR's/Clonus: DTRs 2+; No Clonus (Sidra Vitrano, RN) Headache: Denies (Sidra Vitrano, RN) Breath Sounds, Left: Clear and Equal (Sidra Vitrano, RN) Breath Sounds, Right: Clear and Equal (Sidra Vitrano, RN) Nausea/Vomiting: Denies (Sidra Vitrano, RN) RUQ Epigastric Pain: Denies (Sidra Vitrano, RN) LaborFlag: Antepartum (QS system process) Datetime: 07/03/2016 11:29 Teaching Instructional Method: Verbal; Patient Instructed; Family/Support Person Instructed; Verbalized Understanding (Sidra Walsh RN) Plan of Care: Plan of Care Discussed (Sidra Walsh RN) Unit Routine: [place] to Room; [place]; Bed; Unit Personnel; Monitoring; Safety/Fall Risk Prevention; Bathroom Privileges (Sidra Walsh RN) Datetime: 07/03/2016 11:28 Patient Care Comments: Unable to collect urine d/t pt declines d/t pain (Sidra Walsh RN)
[2016-07-03] MEDS: FAMOTIDINE 20 MG TABLET PO SCH (21:05)
[2016-07-03] MEDS: ACETAMINOPHEN WITH CODEINE #3 TABLET PO PRN (22:26)
[2016-07-04] MEDS: IBUPROFEN 800 MG TABLET PO SCH ×3 (05:19→22:43)
--- NOTE | 2016-07-04 06:00 | L&D Current Admission ---
Current Admit Datetime Report Generated by CPN: 07/04/2016 06:00 ADMISSION INFORMATION Current Admit Date/Time: 07/03/2016 11:35 (07/03/2016 11:37:Sidra Walsh RN) Reason for Admission: Onset of Labor (07/03/2016 11:37:Sidra Walsh RN) Chief Complaint: Contractions (07/03/2016 11:30:Sidra Walsh RN) EGA per Dates: 35.5 (07/03/2016 11:37:QS system process) Method of Arrival: Ambulatory (07/03/2016 11:37:Sidra Walsh RN) Admitted From: Home (07/03/2016 11:37:Sidra Walsh RN) Reason for Induction: Not Applicable (07/03/2016 11:37:Sidra Walsh RN) Records Available: Yes (07/03/2016 11:37:Sidra Walsh RN) General Admission Information: Reviewed; Confirmed (07/03/2016 11:37:Sidra Walsh RN) General Admission Reviewed By: Morales Walsh RN (07/03/2016 11:37:Sidra Walsh RN) BELONGINGS/ADVANCED DIRECTIVES Other Belongings: See belongings consent (07/03/2016 11:37:Sidra Walsh RN) Disposition of Belongings: Kept with Patient (07/03/2016 11:37:Sidra Walsh RN) Advance Direct for Healthcare: No, and Wants No Information (07/03/2016 11:37:Sidra Walsh RN) Durable Power of Auto Washer: No (07/03/2016 11:37:Sidra Walsh RN) Living Will: No (07/03/2016 11:37:Sidra Walsh RN) Organ Donor: No (07/03/2016 11:37:Sidra Walsh RN) Pt Rights Information Given: Yes (07/03/2016 11:37:Sidra Walsh RN) Pt Understands Pt Rights: Yes (07/03/2016 11:37:Sidra Walsh RN) LEARNING ASSESSMENT Knowledge Level: Understands L_D Process; Understands Care Activities; Had Pre-Hospital Education; Understands Diagnosis (07/03/2016 11:37:Sidra Walsh RN) Barriers to Learning: None (07/03/2016 11:37:Sidra Walsh RN) Learning Readiness: Motivated (07/03/2016 11:37:Sidra Walsh RN) Learns Best By: 1 to 1 Instruction (07/03/2016 11:37:Sidra Walsh RN) Learning Needs: Labor and Delivery Process; Pain Management; Symptoms to Report; Treatment Plan; Medication; Diagnosis; Nutrition; Equipment; Infant Care; Community Resources (07/03/2016 11:37:Sidra Walsh RN) DOMESTIC VIOLANCE SCREENING Dom Viol Threatened/Hurt: No (07/03/2016 11:37:Sidra Walsh RN) Hx of Abuse/Neglect past 2yrs: No (07/03/2016 11:37:Sidra Walsh RN) Feel Unsafe Going Home: No (07/03/2016 11:37:Sidra Walsh RN) Addt'l Observ Indicating Abuse: No (07/03/2016 11:37:Sidra Walsh RN) Reason Unable to Complete Screen: N/A, Screen Completed (07/03/2016 11:37:Sidra Walsh RN) Considered Personal Harm/Suicide: No (07/03/2016 11:37:Sidra Walsh RN) NUTRITIONAL/FUNCTIONAL SCREENING Problem with Appetite >5 Days: No (07/03/2016 11:37:Sidra Walsh RN) Chew/Swallow Difficulties: No (07/03/2016 11:37:Sidra Walsh RN) Inappropriate Wt Gain/Loss: No (07/03/2016 11:37:Sidra Walsh RN) Presence Skin Breakdown/Ulcer: No (07/03/2016 11:37:Sidra Walsh RN) Special Diet: No (07/03/2016 11:37:Sidra Walsh RN) Pt Requests Campus Coordinator Visit: No (07/03/2016 11:37:Sidra Walsh RN) Hx of Any of the Following?: N/A (07/03/2016 11:37:Sidra Walsh RN) New Diagnosis of: N/A (07/03/2016 11:37:Sidra Walsh RN) Requires Assist w/Ambulation: No (07/03/2016 11:37:Sidra Walsh RN) Uses Assist Device to Ambulate: No (07/03/2016 11:37:Sidra Walsh RN) Pt Requires Help w/ADL's: No (07/03/2016 11:37:Sidra Walsh RN)
--- NOTE | 2016-07-04 06:00 | L&D General Admission ---
General Admit Datetime Report Generated by CPN: 07/04/2016 06:00 INFORMATION Patient Age: 20 (05/05/2016 21:52:QS system process) EDC: 08/02/2016 00:00 (05/05/2016 21:59:Sidra Walsh RN) : 2 (05/05/2016 21:59:Yamilet Jiménez RN) Para: 1 (05/05/2016 21:59:Yamilet Jiménez RN) Term: 1 (05/05/2016 21:59:Yamilet Jiménez RN) : 0 (05/05/2016 21:59:Yamilet Jiménez RN) Spontaneous Abortions: 0 (05/05/2016 21:59:Yamilet Jiménez RN) Induced Abortions: 0 (05/05/2016 21:59:Yamilet Jiménez RN) Livin (05/05/2016 21:59:Yamilet Jiménez RN) Cesareans: 0 (05/05/2016 21:59:Yamilet Jiménez RN) VBACs: 0 (05/05/2016 21:59:Yamilet Jiménez RN) Ectopic: 0 (05/05/2016 21:59:Yamilet Jiménez RN) Multiple Births: 0 (05/05/2016 21:59:Yamilet Jiménez RN) Baby, Number in Womb: 1 (05/05/2016 21:59:Yamilet Jiménez RN) CARE Primary Cloud Software Engineer: no care (05/05/2016 21:59:Sidra Walsh RN) Month of 1st Visit: none (05/05/2016 21:59:Sidra Walsh RN) Adequate Care: No (05/05/2016 21:59:Yamilet Jiménez RN) Prepregnancy Weight (lb): 190 (05/05/2016 21:59:Sidra Walsh RN) Prepregnancy Weight (kg): 86.4 (05/05/2016 21:59:QS system process) Height (in): 66 (07/03/2016 14:50:QS system process) ALLERGIES Medication Allergy: No (05/05/2016 21:59:Yamilet Jiménez RN) Medication Allergies: No Known Allergies (07/03/2016) (07/03/2016 11:27:QS system process) Latex Allergy: No Latex Allergies (05/05/2016 21:59:Yamilet Jiménez RN) Food Allergies: N/A (05/05/2016 21:59:Sidra Walsh RN) Environmental Allergies: N/A (05/05/2016 21:59:Sidra Walsh RN) COMMUNICATION Primary Language: Namibian (05/05/2016 21:59:Yamilet Jiménez RN) Medical Tx Preferred Language: Namibian (05/05/2016 21:59:Yamilet Jiménez RN) Communication Barrier(s): None (05/05/2016 21:59:JONATHAN Gutiérrez) DEMOGRAPHICS Address: [address] [place] [id number] (05/05/2016 21:52:QS system process) Zipcode: [address] (05/05/2016 21:52:QS system process) Home (05/05/2016 21:52:QS system process) SSN: [id number] (05/05/2016 21:52:QS system process) Next of Kin Name: CRISTAL GREGG (05/05/2016 21:52:QS system process) Next of Kin (05/05/2016 21:52:QS system process) Next of Kin Relationship: OR (05/05/2016 21:52:QS system process) Date of : 1995 (05/05/2016 21:52:QS system process) Marital Status: Single (05/05/2016 21:52:QS system process) Sex: Female (05/05/2016 21:52:QS system process) Occupation: None (05/05/2016 21:59:Sidra Walsh RN) Race: (05/05/2016 21:52:QS system process) Ethnicity: Non- or (05/05/2016 21:52:QS system process) Hindu: Alevism (05/05/2016 21:52:QS system process) FOB Involved: Yes (05/05/2016 21:59:Sidra Walsh RN) Father of Baby Name: Zay Evans (05/05/2016 21:59:Sidra Walsh RN) DRUG AND ALCOHOL USE Alcohol: No (05/05/2016 21:59:Yamilet Jiménez RN) Cigarettes: Former Smoker. [id number] (05/05/2016 21:59:Yamilet Jiménez RN) Marijuana: No (05/05/2016 21:59:Yamilet Jiménez RN) Cocaine: No (05/05/2016 21:59:Yamilet Jiménez RN) Other Illicit Drugs: No (05/05/2016 21:59:Yamilet Jiménez RN) VACCINE HISTORY Influenza Vaccine: No (05/05/2016 21:59:Sidra Walsh RN) Pneumococcal Vaccine: No (05/05/2016 21:59:Sidra Walsh RN) Tetanus Vaccine: No (05/05/2016 21:59:Sidra Walsh RN) Tdap Vaccine: Yes (05/05/2016 21:59:Sidra Walsh RN) Hepatitis B Vaccine: Yes (05/05/2016 21:59:Sidra Walsh RN) Rattan Worker: [facility] (05/05/2016 21:59:Sidra Walsh RN) Feeding Preference: Formula (05/05/2016 21:59:Sidra Walsh RN) Benefit of Breast Feed Discussed: Yes (05/05/2016 21:59:Sidra Walsh RN) Circumcision: Yes (05/05/2016 21:59:Sidra Walsh RN) Classes Attended: No (05/05/2016 21:59:Sidra Walsh RN) Tubal Ligation: No (05/05/2016 21:59:Sidra Walsh RN) Tubal Authorization Signed: N/A (05/05/2016 21:59:Sidra Walsh RN) Consent: N/A (05/05/2016 21:59:Sidra Walsh RN) Consent Signed: N/A (05/05/2016 21:59:Sidra Walsh RN) Pain Management Plans: Medications; Epidural (05/05/2016 21:59:Sidra Walsh RN) Plans for Labor and Delivery: None (05/05/2016 21:59:Sidra Walsh RN) Support Person: Zay Evans (05/05/2016 21:59:Sidra aWlsh RN) Support Person Relationship: Significant Other (05/05/2016 21:59:Sidra Walsh RN) Cultural/Spritual Practice: No (05/05/2016 21:59:Sidra Walsh RN) Spir/Cult Dietary Needs: No (05/05/2016 21:59:Sidra Walsh RN) LIVING SITUATION/DISCHARGE PLAN Living Arrangements: House (05/05/2016 21:59:Sidra Walsh RN) Adequate Access to:: Electric; Heat; Refrigeration; Plumbing/Running water; Phone; Transportation (05/05/2016 21:59:Sidra Walsh RN) WIC Program: Yes (05/05/2016 21:59:Sidra Walsh RN) Discharge Clinic Licensed Practical Nurse Person: Zay Evans (05/05/2016 21:59:Sidra Walsh RN) Person to Help after Discharge: Zay Evans (05/05/2016 21:59:Sidra Walsh RN) Currently Using Commun Resources: Yes (05/05/2016 21:59:Sidra Walsh RN) Specify Current Resource Used: wic, medicaid, food stamps (05/05/2016 21:59:Sidra Walsh RN) Outside Agency/Chief Media Officer: Yes (05/05/2016 21:59:Sidra Walsh RN) Specify Agency/ Chief Media Officer: uncertain (05/05/2016 21:59:Sidra Walsh RN) Car Seat for Discharge: Yes (05/05/2016 21:59:Sidra Walsh RN) Adoption Requested: No (05/05/2016 21:59:Sidra Walsh RN) Pt Contact w/infant Post : N/A (05/05/2016 21:59:Sidra Walsh RN) LABS Blood Type: B Positive (05/05/2016 21:59:Doron Osorio RN) Hemoglobin: 10.7 L (07/03/2016 11:48:QS system process) Hematocrit: 33.5 L (07/03/2016 11:48:QS system process) MCV: 85 (07/03/2016 11:48:QS system process) Group Beta Strep: unknown (05/05/2016 21:59:Sidra Walsh RN) RPR/VDRL: Nonreactive (05/05/2016 21:59:Doron Osorio RN) HIV Exposure Test: Negative (05/05/2016 21:59:Doron Osorio RN) HIV Results: NEGATIVE (05/05/2016 22:20:QS system process) Hepatitis B: Negative (05/05/2016 21:59:Doron Osorio RN) Rubella: POSITIVE NEGATIVE IF LESS THAN OR EQUAL TO 9.99 IU/mL POSITIVE IF GREATER THAN OR EQUAL TO 10.0 IU/mL (05/05/2016 22:20:QS system process) Rubella Titer: 57.50 (05/05/2016 22:20:QS system process) OB/PREVIOUS HISTORY Previous Procedures: Ultrasound; NST (05/05/2016 21:59:Yamilet Jiménez RN) Current Procedures: NST (05/05/2016 21:59:Yamilet Jiménez RN) History of Previous : No (05/05/2016 21:59:Yamilet Jiménez RN) History of Gestational Diabetes: No (05/05/2016 21:59:Yamilet Jiménez RN) History of PIH: No (05/05/2016 21:59:Yamilet Jiménez RN) History of Incompetent Cervix: No (05/05/2016 21:59:Yamilet Jiménez RN) History of Placenta Previa/Abrup: No (05/05/2016 21:59:Yamilet Jiménez RN) History of Macrosomia: No (05/05/2016 21:59:Yamilet Jiménez RN) History of IUGR: No (05/05/2016 21:59:Yamilet Jiménez RN) History of Hemorrhage: No (05/05/2016 21:59:Yamilet Jiménez RN) History of Loss/Stillborn: No (05/05/2016 21:59:Yamilet Jiménez RN) History of : No (05/05/2016 21:59:Yamilet Jiménez RN) History of D (Rh) Sensitization: No (05/05/2016 21:59:Yamilet Jiménez RN) History Recurrent Loss/Stillborn: No (05/05/2016 21:59:Yamilet Jiménez RN) History Depression/PP Depression: No (05/05/2016 21:59:Yamilet Jiménez RN) History of Uterine Anomaly/RAMBO: No (05/05/2016 21:59:Yamilet Jiménez RN) History of Infertility: No (05/05/2016 21:59:Yamilet Jiménez RN) History of ART Treatment: No (05/05/2016 21:59:Yamilet Jiménez RN) History of RAMBO: No (05/05/2016 21:59:Yamilet Jiménez RN) Comments Obstetrical History: G1: 08/2015 40 wk male G2: Current Close space No PNC (05/05/2016 21:59:Sidra Walsh RN) MEDICAL HISTORY Med Hx Diabetes: No (05/05/2016 21:59:Yamilet Jiménez RN) Med Hx Hypertension: No (05/05/2016 21:59:Yamilet Jiménez RN) Med Hx Heart Disease: No (05/05/2016 21:59:Yamilet Jiménez RN) Med Hx Autoimmune Disorder: No (05/05/2016 21:59:Yamilet Jiménez RN) Med Hx Kidney Disease/UTI: No (05/05/2016 21:59:Yamilet Jiménez RN) Med Hx Neurologic/Epilepsy: No (05/05/2016 21:59:Yamilet Jiménez RN) Med Hx Psychiatric Disorders: No (05/05/2016 21:59:Yamilet Jiménez RN) Med Hx Hepatitis/Liver Disease: No (05/05/2016 21:59:Yamilet Jiménez RN) Med Hx Varicosities/Phlebitis: No (05/05/2016 21:59:Yamilet Jiménez RN) Med Hx Thyroid Dysfunction: No (05/05/2016 21:59:Yamilet Jiménez RN) Med Hx Trauma/Violence: No (05/05/2016 21:59:Yamilet Jiménez RN) Med Hx Blood Transfusion: No (05/05/2016 21:59:Yamilet Jiménez RN) Med Hx Pulmonary (Asthma,TB): No (05/05/2016 21:59:Yamilet Jiménez RN) Med Hx Breast: No (05/05/2016 21:59:Yamilet Jiménez RN) Med Hx MASCARA MOLDER Surgery: No (05/05/2016 21:59:Yamilet Jiménez RN) Med Hx Hospitalization/Surgery: Yes (05/05/2016 21:59:Yamilet Jiménez RN) Med Hx Anesthetic Complications: No (05/05/2016 21:59:Yamilet Jiménez RN) Med Hx Abnormal Pap Smear: No (05/05/2016 21:59:Yamilet Jiménez RN) Other Medical Diseases: No (05/05/2016 21:59:Yamilet Jiménez RN) Med Hx Significant Family Hx: No (05/05/2016 21:59:Yamilet Jiménez RN) Details of Med/Surg Hx: Hospitalization childbirth (05/05/2016 21:59:Yamilet Jiménez RN) INFECTIOUS HISTORY Inf Hx Gonorrhea: No (05/05/2016 21:59:Yamilet Jiménez RN) Inf Hx Chlamydia: Yes (05/05/2016 21:59:Yamilet Jiménez RN) Inf Hx Syphilis: No (05/05/2016 21:59:Yamilet Jiménez RN) Inf Hx HIV/AIDS: No (05/05/2016 21:59:Yamilet Jiménez RN) Inf Hx Human Papilloma Virus: No (05/05/2016 21:59:Yamilet Jiménez RN) Inf Hx Pt/Partner Genital Herpes: No (05/05/2016 21:59:Yamilet Jiménez RN) Inf Hx Tuberculosis/Exposure: No (05/05/2016 21:59:Yamilet Jiménez RN) Inf Hx Hepatitis B,C: No (05/05/2016 21:59:Yamilet Jiménez RN) Inf Hx Rash or Viral Illness: No (05/05/2016 21:59:Yamilet Jiménez RN) Details of Infectious Hx: chlamydia 2016 with tx (05/05/2016 21:59:Yamilet Jiménez RN) GENETIC HISTORY Gen Hx Age >=35 at BETH[place]: No (05/05/2016 21:59:Yamilet Jiménez RN) Gen Hx Thalassemia: No (05/05/2016 21:59:Yamilet Jiménez RN) Gen Hx Congenital Heart Defect: No (05/05/2016 21:59:Yamilet Jiménez RN) Gen Hx Neural Tube Defect: No (05/05/2016 21:59:Yamilet Jiménez RN) Gen Hx Down's Syndrome: No (05/05/2016 21:59:Yamilet Jiménez RN) Gen Hx Jhony-Sachs: No (05/05/2016 21:59:Yamilet Jiménez RN) Gen Hx Mya: No (05/05/2016 21:59:Yamilet Jiménez RN) Gen Hx Familial Dysautonomia: No (05/05/2016 21:59:Yamilet Jiménez RN) Gen Hx Sickle Cell Disease/Trait: No (05/05/2016 21:59:Yamilet Jiménez RN) Gen Hx Hemophilia/Blood Disorder: No (05/05/2016 21:59:Yamilet Jiménez RN) Gen Hx Muscular Dystrophy: No (05/05/2016 21:59:Yamilet Jiménez RN) Gen Hx Cystic Fibrosis: No (05/05/2016 21:59:Yamilet Jiménez RN) Gen Hx Huntingtons Chorea: No (05/05/2016 21:59:Yamilet Jiménez RN) Gen Hx Mental Retardation/Autism: No (05/05/2016 21:59:Yamilet Jiménez RN) Gen Hx Tested for Fragile X: No (05/05/2016 21:59:Yamilet Jiménez RN) Gen Hx Other Inher/Chromosomal: No (05/05/2016 21:59:Yamilet Jiménez RN) Gen Hx Maternal Metabolic DO: No (05/05/2016 21:59:Yamilet Jiménez RN) Gen Hx Pt Father or FOB Defect: No (05/05/2016 21:59:Yamilet Jiménez RN) Gen Hx Other Genetic History: No (05/05/2016 21:59:Yamilet Jiménez RN) Gen Hx Drugs/Meds since LMP: No (05/05/2016 21:59:Yamilet Jiménez RN)
--- NOTE | 2016-07-04 06:15 | L&D Care Plan ---
LD CARE PLANS Datetime Report Generated by CPN: 07/04/2016 06:15 Datetime: 07/03/2016 11:42 Pain State: Actual (JONATHAN Sifuentes) Related To: Labor and Delivery Process (JONATHAN Sifuentes) Goal(s): Patients Pain will be Assessed and Managed; Patient will Verbalize Adequate Relief of Pain or the Ability to [place] with Current Pain (JONATHAN Sifuentes) Interventions: Assess Pain Severity on Scale of 0 (None) to 5 (Severe); Assess Type, Location and Intensity of Pain Each Time Client Reports Discomfort and Notify Provider if Unusal Pain Develops; Encourage Proper Breathing and Relaxation Techniques; Offer Alternatives Such as Repositioning, Calm Environment, Massages, Diversional Activities, Ice Pack, Splinting, and Ambulation; Administer Analgesics as Ordered; Assist with Epidural Placement as Appropriate; Evaluate Therapeutic Effectiveness of Medication and Treatments (JONATHAN Sifuentes) Outcome: Patient will Report Absence or Relief of Pain Consistent with Established Pain Goal (JONATHAN Sifuentes) Outcome: Patient will have a Decrease in Signs and Symptoms of Discomfort (JONATHAN Sifuentes) Outcome: Pain will be Controlled During Procedures (JONATHAN Sifuentes) Anxiety State: Actual (JONATHAN Sifuentes) Related To: Labor and Delivery Process (JONATHAN Sifuentes) Goal(s): Patient will have Decreased Anxiety and be able to Function at Acceptable Levels (JONATHAN Sifuentes) Interventions: Assess Verbal and Nonverbal Behavioral Indicators of Anxiety; Assist Patient to Identify and Verbalize Symptoms of Anxiety; Identify and Demonstrate Techniques to Control Anxiety; Assist Patient with Coping Mechanisms to Manage Anxiety; Provide Theraputic Touch for the Patient; Explain to Patient, Using a Calm Reassuring Approach and Nonmedical Terms, All Activities, Procedures, and Concerns; Instruct Patient and Family about Post Discharge Care, Limitations, Symptoms to Report and Resources Available (JONATHAN Sifuentes) Outcome: Patient will Identify, Verbalize and Demonstrate Techniques to Control Anxiety (JONATHAN Sifuentes) Outcome: Patient's Posture, Facial Expressions, Gestures and Activity Level will Reflect Decreased Anxiety (JONATHAN Sifuentes) Outcome: Patient will Verbalize a Sense of Control and/or Acceptance of the Situation (JONATHAN Sifuentes) Outcome: Patient will Identify and Utilize Support Person (JONATHAN Sifuentes) Knowledge Deficit State: Risk For (JONATHAN Sifuentes) Related To: Labor and Delivery Process; Impending Alterations in Family Dynamics; Feeding and Care; Community Resources and Available Support Mechanisms (JONATHAN Sifuentes) Goal(s): Patient will Accurately Verbalize Understanding of Plan of Care and Treatment; Patient and Family will Accurately Verbalize Understanding of the Disease Process (JONATHAN Sifuentes) Interventions: Assess Motivation and Willingness of Patient/Family to Learn; Assess Preferred Learning Mode: One to One Instruction, Reading, Videos, Group Discussion or Demonstration; Assess Barriers to Learning: Pain, Emotional State, Language Barrier, Cognitive Impairment, Visual or Hearing Deficits; Assess Patient and Family Knowledge of Disease Process, Medications and Treatment; Discuss Therapy and/or Treatment Options, Describe Rationale Behind Management, Therapy and Treatment Recommendations; Instruct Patient and Family on Signs and Symptoms to Report; Instruct Patient and Family on Medication Effects and Side Effects; Provide Appropriate and Timely Education Using Multiple Techniques; Provide Patient and Family with Support Group Information and Resources; Give Clear and Thorough Explanations and Demonstrations (JONATHAN Sifuentes) Outcome: Patient and Family will Verbalize Understanding of Condition, Treatment and Signs and Symptoms to Report (JONATHAN Sifuentes) Outcome: Patient will Identify Perceived Learning Needs and Express Motivation to Learn (JONATHAN Sifuentes) Outcome: Patient will Verbalize Understanding of Desired Content, and/or Performs Desired Skill Prior to Discharge (JONATHAN Sifuentes) Infection State: Risk For (JONATHAN Sifuentes) Related To: Prolonged Labor or Induction; Premature/Prolonged Rupture of Membranes (JONATHAN Sifuentes) Goal(s): The Patient will be Free of Infection, Vital Signs Stable and Lab Work within Normal Parameters (JONATHAN Sifuentes) Interventions: Instruct and Reinforce Proper Handwashing, Hygiene, and Care Techniques to Patient and Family; Monitor Vital Signs; Monitor Patient for the Following Signs of Infection: Fever, Abdominal Tenderness, Unusual Discharge; Monitor Aminiotic Fluid, Urine and Lochia for Color and Odor; Observe Wounds, Incisions and Invasive Line Sites for Redness, Drainage and Edema; Assess IV Sites per Hospital Policy; Monitor Lab and Test Results and Notify Provider of Abnormal Findings; Assess Nutritional Status and Promote Good Nutrition (JONATHAN Sifuentes) Outcome: Patient will Remain Free of Infection (JONATHAN Sifuentes) Outcome: Infection will be Recognized Early to Allow for Prompt Treatment (JONATHAN Sifuentes) Outcome: Patient will have Vital Signs Within Expected Range (JONATHAN Sifuentes) Fluid Volume State: Not Applicable (JONATHAN Sifuentes) Injury State: Not Applicable (Deonna Valentín, RNC) Impaired Skin Integrity State: Not Applicable (Deonna Avlentín, RNC) Parenting Impaired State: Not Applicable (Deonna Valentín, RNC) Nutrition State: Not Applicable (Deonna Valentín, RNC) Grieving State: Not Applicable (Deonna Valentín, RNC) Additional Care Plan State: Not Applicable (Deonnacody Laura, RNC)
[2016-07-04 08:17] LABS: HEMATOCRIT 31.1 % (36.0-47.0); HEMOGLOBIN 10.2 g/dL (12.0-15.5); HGB HCT DIFFERENCE -0.5; MEAN CORPUSCULAR HEMOGLOBIN 27.9 pg (27.0-33.4); MEAN CORPUSCULAR HGB CONC 32.7 g/dL (32.0-36.0); MEAN CORPUSCULAR VOLUME 85 fl (80-97); RED BLOOD COUNT 3.65 10^6/uL (3.72-5.28); RED CELL DISTRIBUTION WIDTH 12.9 % (11.5-14.0); WHITE BLOOD COUNT 9.1 10^3/uL (4.0-10.5)
[2016-07-04] MEDS: FERROUS SULFATE 325 MG TABLET PO SCH ×2 (10:18→17:58)
[2016-07-04] MEDS: SENNOSIDES/DOCUSATE 8.6-50 MG 1 EACH TABLET PO SCH (10:18)
[2016-07-04] MEDS: PRENATAL VITAMIN W-O CA NO5/FE FUMARATE/FA CAPSULE PO SCH (10:18)
[2016-07-04] MEDS: DOCUSATE SODIUM 100 MG CAPSULE PO SCH ×2 (10:19→17:58)
[2016-07-04] MEDS: FAMOTIDINE 20 MG TABLET PO SCH ×2 (10:19→22:43)
--- NOTE | 2016-07-04 11:45 | PDOC PROGRESS REPORT ---
Subjective-OB Subjective: Post Delivery Day: 20 year old. Denies any needs at this time. Pt doing well, ambulatory, light bleeding, regular diet and voiding well. No concerns. Physical Exam (OB) Vital Signs: Temp Pulse Resp BP Pulse Ox 97.9 F 62 17 86/57 L 100 07/04/16 07:48 07/04/16 07:48 07/04/16 07:48 07/04/16 07:48 07/04/16 07:48 Intake & Output 07/03/16 07/04/16 07/05/16 06:59 06:59 06:59 Intake Total 800 Balance 800 Weight 95.05 kg - Lochia Lochia Amount: Scant < 10 ml Lochia Color: Rubra/Red - Abdomen Description: Soft Hernia Present: No Fundal Description: Firm Fundal Height: u/u - u/2 Objective-Diagnostic Laboratory: 07/04/16 07:44 07/03/16 07/03/16 07/03/16 11:48 11:48 12:08 WBC 7.6 RBC 3.92 Hgb 10.7 L Hct 33.5 L MCV 85 MCH 27.3 MCHC 32.0 RDW 12.8 Plt Count 231 Seg Neutrophils % 78.4 H Lymphocytes % 14.3 Monocytes % 6.3 Eosinophils % 0.3 Basophils % 0.7 Absolute Neutrophils 5.9 Absolute Lymphocytes 1.1 Absolute Monocytes 0.5 Absolute Eosinophils 0.0 Absolute Basophils 0.1 Urine Color DARK YELLOW Urine Appearance SLIGHTLY-CLOUDY Urine pH 6.0 Ur Specific Clemons 1.032 Urine Protein 30 H Urine Glucose (UA) NEGATIVE Urine Ketones TRACE H Urine Blood SMALL H Urine Nitrite NEGATIVE Ur Leukocyte Esterase TRACE H Urine WBC (Auto) 3 Urine RBC (Auto) 41 Blood Type B POSITIVE Antibody Screen NEGATIVE 07/04/16 07:44 WBC 9.1 RBC 3.65 L Hgb 10.2 L Hct 31.1 L MCV 85 MCH 27.9 MCHC 32.7 RDW 12.9 Plt Count 236 Seg Neutrophils % Lymphocytes % Monocytes % Eosinophils % Basophils % Absolute Neutrophils Absolute Lymphocytes Absolute Monocytes Absolute Eosinophils Absolute Basophils Urine Color Urine Appearance Urine pH Ur Specific Clemons Urine Protein Urine Glucose (UA) Urine Ketones Urine Blood Urine Nitrite Ur Leukocyte Esterase Urine WBC (Auto) Urine RBC (Auto) Blood Type Antibody Screen Assessment and Plan(PN) - Assessment and Plan (1) Vaginal delivery Is this a current diagnosis for this admission?: Yes - Time Spent with Patient Time with patient: Less than 15 minutes Medications reviewed and adjusted accordingly: Yes - Disposition Anticipated Discharge: Home Within: within 24 hours
[2016-07-05] MEDS: IBUPROFEN 800 MG TABLET PO SCH (05:34)
[2016-07-05] MEDS: ACETAMINOPHEN WITH CODEINE #3 TABLET PO PRN (08:11)
[2016-07-05 08:24] VITALS: BP 104/64
[2016-07-05] MEDS: PRENATAL VITAMIN W-O CA NO5/FE FUMARATE/FA CAPSULE PO SCH (09:41)
[2016-07-05] MEDS: DOCUSATE SODIUM 100 MG CAPSULE PO SCH (09:41)
[2016-07-05] MEDS: FAMOTIDINE 20 MG TABLET PO SCH (09:41)
[2016-07-05] MEDS: FERROUS SULFATE 325 MG TABLET PO SCH (09:41)
[2016-07-05] MEDS: SENNOSIDES/DOCUSATE 8.6-50 MG 1 EACH TABLET PO SCH (09:41)
--- NOTE | 2016-07-05 10:41 | PDOC PROGRESS REPORT ---
Subjective-OB Subjective: Post Delivery Day: 20 year old. Denies any needs at this time. Ready to go home. Physical Exam (OB) Vital Signs: Temp Pulse Resp BP Pulse Ox 98.4 F 68 16 104/64 99 07/05/16 08:44 07/05/16 08:44 07/05/16 08:44 07/05/16 08:00 07/05/16 08:44 Intake & Output 07/04/16 07/05/16 07/06/16 06:59 06:59 06:59 Intake Total 800 Balance 800 Weight 95.05 kg - PIH/Pre-Eclampsia DTR's: 2 + Clonus: Negative Headache: Absent Epigastric Pain: No Visual Changes: No - Dressing Removed: No - Lochia Lochia Amount: Scant < 10 ml Lochia Color: Rubra/Red - Abdomen Description: Tender, Soft Hernia Present: No Bowel Sounds: Normoactive Flatus Presence: Present Stool: No Fundal Description: Firm, Midline Fundal Height: u/u - u/2 Objective-Diagnostic Laboratory: 07/04/16 07:44 Assessment and Plan(PN) - Time Spent with Patient Medications reviewed and adjusted accordingly: Yes - Disposition Anticipated Discharge: Home
--- NOTE | 2016-07-05 10:47 | PDOC DISCHARGE SUMMARY ---
Final Diagnosis Discharge Date: 07/05/16 - Final Diagnosis (1) Chlamydia infection during Is this a current diagnosis for this admission?: Yes (2) Closely spaced pregnancies Is this a current diagnosis for this admission?: Yes (3) No care in current Is this a current diagnosis for this admission?: Yes (4) Vaginal delivery Is this a current diagnosis for this admission?: Yes Discharge Data - Discharge Medication Home Medications: Vit/Iron Fumarate/FA [ Tablet] 1 tab PO DAILY 07/03/16 Gestational Age: 35.5 wks Reason(s) for Admission: Onset of Labor Procedures: None Intrapartum Procedure(s): Spontaneous Vaginal Delivery Complication(s): Laceration-Labial Laceration-Degree: 1st - [place] Data Baby 1 Female at 1 minute: 8 at 5 minutes: 9 Weight: 2.863 kg Home with Mother: Yes Complications: No - Diagnosis Test Laboratory: Temp Pulse Resp BP Pulse Ox 98.4 F 68 16 104/64 99 07/05/16 08:44 07/05/16 08:44 07/05/16 08:44 07/05/16 08:00 07/05/16 08:44 07/03/16 07/03/16 07/04/16 11:48 12:08 07:44 RBC 3.92 3.65 L Hgb 10.7 L 10.2 L Hct 33.5 L 31.1 L Urine Opiates Screen NEGATIVE - Discharge information/Instructions Discharge Activity: Activity As Tolerated, Balance Activity w/Rest, Pelvic Rest , Slowly Increase Activity, No tub bath Discharge Diet: Regular Disposition: HOME, SELF-CARE Follow [facility]: [facility] in: 4, Weeks
[2016-07-05] MEDS ORDERED: MEDROXYPROGESTERONE ACET INJ 150 MG/1 ML VIAL IM PRN (11:04)
== END 2016-07-05 12:30 | disposition home or self-care (01) | DRG 774 ==
LOC: LC 11:18 → LR 11:36 → 2S 14:42
PROVIDERS: ADMIT Specialist; ATTEND Specialist
PROC: 10E0XZZ Delivery of Products of Conception, External Approach (ICD-10-PCS; principal; 2016-07-03)
PROC: 0HQ9XZZ Repair Perineum Skin, External Approach (ICD-10-PCS; 2016-07-03)
PROC: 4A1HXCZ Monitoring of Products of Conception, Cardiac Rate, External Approach (ICD-10-PCS; 2016-07-03)
PROC: 3E0234Z Introduction of Serum, Toxoid and Vaccine into Muscle, Percutaneous Approach (ICD-10-PCS; 2016-07-03)
DX: O60.14X0 Preterm labor third trimester with preterm delivery third trimester, not applicable or unspecified (principal); O98.32 Other infections with a predominantly sexual mode of transmission complicating childbirth; O69.3XX0 Labor and delivery complicated by short cord, not applicable or unspecified; O77.0 Labor and delivery complicated by meconium in amniotic fluid; O70.0 First degree perineal laceration during delivery; A56.8 Sexually transmitted chlamydial infection of other sites; Z3A.35 35 weeks gestation of pregnancy; Z37.0 Single live birth; Z23 Encounter for immunization
CPT/HCPCS: 36415; 80307; 81001; 85025; 85027; 86592; 86850; 86900; 86901; 87491; 87591; 88307; 90686; 90715; 94760; J1050; J2590; J3490